=== PATIENT | female | born 2000 | race African-American/Black ===

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

== ENCOUNTER 2018-02-20 02:12 | Inpatient (IN) | payer OTHER ==
[2018-02-20] MEDS ORDERED: Charcoal ACTIVATED* 25 GM/120 ML BTL PO ONE ×2 (02:17→02:30)
[2018-02-20] MEDS ORDERED: NS 0.9% 1000 ML* 1,000 ML IV ONE (02:29)
[2018-02-20 02:35] LABS: ABS Basophils 0 10^3/ul (0-0.2); ABS Eosinophils 0.1 10^3/ul (0-0.6); ABS Lymphocytes 1.9 10^3/ul (1.0-4.8); ABS Monocytes 0.4 10^3/ul (0-0.8); ABS Neutrophils 3.5 10^3/ul (1.5-7.7); ABS Nucleated RBC 0 10^3/ul; Eosinophil % 2.2 %; Hematocrit 41 % (35-47); Hemoglobin 13.3 g/dl (12.0-16.0); Mean Corpuscular HGB Conc 33 g/dl (31-36); Mean Corpuscular Hemoglobin 26 pg (27-31); Mean Corpuscular Volume 81 fL (80-97); Mean Platelet Volume 7.7 fL (7.4-10.4); Nucleated Red Blood Cells % 0.1; Platelet Count 230 10^3/ul (150-450); Red Blood Count 5.05 10^6/ul (4.00-5.40); Red Cell Distribution Width 14 % (10.5-15); White Blood Count 5.9 10^3/ul (3.5-10.8)
--- NOTE | 2018-02-20 02:46 | ED ---
Substance Abuse/Use - HPI Summary HPI Summary: This patient is a 17 year old F BIBA to [facility] after she attempted to overdose on her prescription medication at 0130. Pt reports she took approximately 86 pills of 5mg abilify and approximately unknown amount of lexapro 20mg. She states she did have multiple episodes of emesis with pills in it. - History Of Current Complaint Stated Complaint: OD Time Seen by Provider: 02/20/18 02:14 Hx Obtained From: Patient Onset/Duration of Drug/ETOH Abuse: Hours Ingestion History: Type/Name Of Drug - see HPI, Amount Ingested - see HPI Overdose Characteristics: Oral Timing Of Abuse: Binge Use Severity Initially: Severe Severity Currently: Severe Character: Depressed Associated Signs And Symptoms: Vomiting, Intentional Ingestion Related Hx: Suicidal - Allergies/Home Medications Allergies/Adverse Reactions: Allergies Allergy/AdvReac Type Severity Reaction Status Date / Time No Known Allergies Allergy Verified 10/25/17 10:06 PMH/Surg Hx/FS Hx/Imm Hx Endocrine/Hematology History: Denies: Hx Diabetes Cardiovascular History: Denies: Hx Hypertension Sensory History: Reports: Hx Contacts or Glasses Denies: Hx Hearing Aid Opthamlomology History: Reports: Hx Contacts or Glasses Psychiatric History: Reports: Hx Anxiety, Hx Depression, Hx Inpatient Treatment , Hx Community Mental Health Tx Denies: Hx Attention Deficit Hyperactivity Disorder, Hx Eating Disorder, Hx Panic Disorder, Hx Post Traumatic Stress Disorder, Hx Schizophrenia, Hx Bipolar Disorder, Hx Suicide Attempt, Hx of Violent Episodes Against Others, Hx Substance Abuse - Surgical History Surgery Procedure, Year, and Place: tonsils and adenoids removed February 2017 Infectious Disease History: No Infectious Disease History: Denies: Traveled Outside the [place] in Last 30 Days - Family History Family History: Father with depression - Social History Alcohol Use: Rare Substance Use Type: Reports: Marijuana Substance Use Comment - Amount & Last Used: pt reports smoking marijuana 3-5 times per week Smoking Status (MU): Never Smoked Tobacco Review of Systems Negative: Fever Positive: Vomiting, Other - overdose Positive: Depressed, Other - SI All Other Systems Reviewed And Are Negative: Yes Physical Exam - Summary Physical Exam Summary: VITAL SIGNS: Reviewed. GENERAL: Patient is a well-developed and nourished female who is lying comfortable in the stretcher. Patient is not in any acute respiratory distress. HEAD AND FACE: No signs of trauma. No ecchymosis, hematomas or skull depressions. No sinus tenderness. EYES: PERRLA, EOMI x 2, No injected conjunctiva, no nystagmus. EARS: Hearing grossly intact. Ear canals and tympanic membranes are within normal limits. MOUTH: Oropharynx within normal limits. NECK: Supple, trachea is midline, no adenopathy, no JVD, no carotid bruit, no c- spine tenderness, neck with full ROM. CHEST: Symmetric, no tenderness at palpation LUNGS: Clear to auscultation bilaterally. No wheezing or crackles. CVS: Regular rate and rhythm, S1 and S2 present, no murmurs or gallops appreciated. ABDOMEN: Soft, non-tender. No signs of distention. No rebound no guarding, and no masses palpated. Bowel sounds are normal. EXTREMITIES: FROM in all major joints, no edema, no cyanosis or clubbing. NEURO: Alert and oriented x 3. No acute neurological deficits. Speech is slow SKIN: Dry and warm Triage Information Reviewed: Yes Vital Signs On Initial Exam: Initial Vitals Temp Pulse Resp BP Pulse Ox 97.6 F 86 15 123/75 97 02/20/18 02:21 02/20/18 02:21 02/20/18 02:21 02/20/18 02:21 02/20/18 02:21 Vital Signs Reviewed: Yes Diagnostics - Vital Signs Vital Signs Temp Pulse Resp BP Pulse Ox 02/20/18 02:21 97.6 F 86 15 123/75 97 - Laboratory Lab Results: Lab Results 02/20/18 Range/Units 02:26 WBC 5.9 (3.5-10.8) 10^3/ul RBC 5.05 (4.00-5.40) 10^6/ul Hgb 13.3 (12.0-16.0) g/dl Hct 41 (35-47) % MCV 81 (80-97) fL MCH 26 L (27-31) pg MCHC 33 (31-36) g/dl RDW 14 (10.5-15) % Plt Count 230 (150-450) 10^3/ul MPV 7.7 (7.4-10.4) fL Neut % (Auto) 58.3 % Lymph % (Auto) 32.0 % [place] % (Auto) 6.7 % Eos % (Auto) 2.2 % Baso % (Auto) 0.8 % Absolute Neuts (auto) 3.5 (1.5-7.7) 10^3/ul Absolute Lymphs (auto) 1.9 (1.0-4.8) 10^3/ul Absolute Monos (auto) 0.4 (0-0.8) 10^3/ul Absolute Eos (auto) 0.1 (0-0.6) 10^3/ul Absolute Basos (auto) 0 (0-0.2) 10^3/ul Absolute Nucleated RBC 0 10^3/ul Nucleated RBC % 0.1 Result Diagrams: 02/20/18 02:26 02/20/18 02:23 Lab Statement: Any lab studies that have been ordered have been reviewed, and results considered in the medical decision making process. - EKG 0239 Cardiac Rate: NL EKG Rhythm: Sinus Rhythm - at 83 BPM Summary of EKG Findings: Normal axis. Normal interval. No ischemic changes Re-Evaluation - Re-Evaluation First Eval Re-Evaluation Time: 03:00 Change: Unchanged Comment: poison control was contacted. They stated she will need 24 hour monitoring with tele. She can have benzos as needed. Course/Dx - Course Assessment/Plan: This patient is a 17 year old F BIBA to [facility] after she attempted to overdose on her prescription medication at 0130. Pt reports she took approximately 86 pills of 5mg abilify and approximately unknown amount of lexapro 20mg. She states she did have multiple episodes of emesis with pills in it. IV fluids and charcoal were given. We discussed patient care with the hospitalist and she was accepted for admission. Patient will be admitted. The patient is agreeable with this plan. - Diagnoses Provider Diagnoses: Depression, Overdose - Physician Notifications Discussed Care Of Patient With: Carter Ferris Time Discussed With Above Provider: 03:29 Instructed by Provider To: Admit As Inpatient Discharge - Sign-Out/Discharge Documenting (check all that apply): Patient Departure - admitted - Discharge Plan Condition: Fair Disposition: ADMITTED TO [facility] - Billing Disposition and Condition Condition: FAIR Disposition: Admitted to [facility] - Attestation Statements Document Initiated by Scribe: Yes Documenting Scribe: Bran Gonsalves Provider For Whom Scribe is Documenting (Include Credential): Sarah Wade MD Scribe Attestation: Bran Erazo scribed for Sarah Wade MD on 02/20/18 at 0602. Scribe Documentation Reviewed: Yes Provider Attestation: The documentation as recorded by the Bran chicas accurately reflects the service I personally performed and the decisions made by me, Sarah Wade MD Status of Scribkim Document: Viewed
[2018-02-20 02:51] LABS: ALT 13 U/L (7-52); AST 17 U/L (13-39); Albumin 4.2 g/dL (3.2-5.2); Albumin/Globulin Ratio 1.6 (1-3); Alkaline Phosphatase 72 U/L (34-104); Anion Gap 7 mmol/L (2-11); BUN/Creatinine Ratio 13.5 (8-20); Blood Urea Nitrogen 12 mg/dL (6-24); CO2 Carbon Dioxide 24 mmol/L (22-32); Calcium 9.4 mg/dL (8.6-10.3); Chloride 105 mmol/L (101-111); EGFR Non-African American 81.7 (>60); Globulin 2.7 g/dL (2-4); Glucose 116 mg/dL (70-100); Potassium 3.6 mmol/L (3.5-5.0); Sodium 136 mmol/L (135-145); Total Protein 6.9 g/dL (6.4-8.9)
[2018-02-20 02:57] LABS: HCG Pregnancy < 0.60 mIU/mL
[2018-02-20 03:08] LABS: Acetaminophen < 15 mcg/mL; Alcohol < 10 mg/dL (<10); Salicylate < 2.50 mg/dL (<30)
[2018-02-20 03:24] LABS: TSH (Thyroid Stimulating Horm) 1.11 mcIU/mL (0.34-5.60)
[2018-02-20 06:06] LABS: Urine Appearance Clear; Urine Bacteria Absent (Absent); Urine Bilirubin Negative (Negative); Urine Blood 1+ (Negative); Urine Color Colorless; Urine Glucose Negative (Negative); Urine Ketones Negative (Negative); Urine Nitrite Negative (Negative); Urine Protein Negative (Negative); Urine Red Blood Cell Trace(0-2/hpf) (Absent); Urine Specific Gravity 1.003 (1.010-1.030); Urine Urobilinogen Negative (Negative); Urine White Blood Cell Absent (Absent)
[2018-02-20 06:18] LABS: Barbiturates Urine Screen None Detected (None Detect); Benzodiazepine Urine Screen None Detected (None Detect); Urine Cannabinoids Screen Presumptive Positive (None Detect)
--- NOTE | 2018-02-20 06:19 | ADMNOTE ---
Subjective Date of Service: 02/20/18 Interval History: HISTORY & PHYSICAL CC: overdose HPI: Patient is a 17 year old student who took 86 pills of Abilify 5 mg and an unknown number of Lexapro tablets this evening. She was brought in by ambulance from [facility]. She is somnolent and cannot give much history. ER contacted poison control and was advised that she should be monitored on telemetry for 24 hours post ingestion. She was admitted to this hospital with depression and suicidal ideation 10/25 through 10/31/17. Was discharged to mental health services on Abilify and Lexapro. When asked who we should call to notify, she said she wants her mother to come up from [place] to see her. Family History: Findings - Mother and Father well, sister well Social History: Findings - Student at , single, no children, no smoking, no alcohol, no recreational drugs Past Medical History: Findings - denies PMH, had tonsils and adenoids removed in past Review of Systems - Measurements Intake and Output: Intake and Output Last 24 Hours 02/17/18 02/18/18 02/19/18 02/20/18 06:59 06:59 06:59 06:59 Intake Total 1000 Output Total 750 Balance 250 Weight 77.247 kg Intake: IV Fluids 1000 Oral 0 Output: Urine 750 - Review of Systems General Comments: patient lethargic, cannot respond to ROS Objective Additional Medications: received charcoal in ER Vital Signs - 8 hr 02/20/18 02/20/18 02/20/18 02:21 02:23 02:53 Temperature 36.4 C Pulse Rate 86 89 96 Respiratory 15 25 17 Rate Blood Pressure 123/75 123/75 126/91 (mmHg) O2 Sat by Pulse 97 96 97 Oximetry 02/20/18 02/20/18 02/20/18 03:00 03:23 03:53 Temperature Pulse Rate 78 74 77 Respiratory 18 18 18 Rate Blood Pressure 111/69 109/64 (mmHg) O2 Sat by Pulse 96 97 97 Oximetry 02/20/18 02/20/18 02/20/18 04:00 04:23 04:53 Temperature Pulse Rate 74 74 75 Respiratory 17 18 18 Rate Blood Pressure 111/61 106/62 (mmHg) O2 Sat by Pulse 96 97 96 Oximetry 02/20/18 02/20/18 05:06 05:51 Temperature 36.7 C 36.2 C Pulse Rate 73 79 Respiratory 15 20 Rate Blood Pressure 106/62 116/62 (mmHg) O2 Sat by Pulse 96 100 Oximetry Oxygen Devices in Use Now: None Appearance: sleeping, arouses to touch, drifts back to sleep Eyes: No Scleral Icterus Ears/Nose/Mouth/Throat: Clear Oropharnyx Neck: NL Appearance and Movements; NL JVP, Trachea Midline Respiratory: Symmetrical Chest Expansion and Respiratory Effort, Clear to Auscultation Cardiovascular: NL Sounds; No Murmurs; No JVD, RRR Abdominal: NL Sounds; No Tenderness; No Distention, No Hepatosplenomegaly Lymphatic: No Cervical Adenopathy, No Axillary Adenopathy Extremities: No Edema Skin: No Rash or Ulcers Neurological: NL Muscle Strength and Tone, - - somnolent, answers yes/no questions appropriately Lines/Tubes/Other Access: Clean, Dry and Intact Peripheral IV Nutrition: Taking PO's Result Diagrams: 02/20/18 02:26 02/20/18 02:23 Additional Lab and Data: Lab Results 02/20/18 Range/Units 02:26 WBC 5.9 (3.5-10.8) 10^3/ul RBC 5.05 (4.00-5.40) 10^6/ul Hgb 13.3 (12.0-16.0) g/dl Hct 41 (35-47) % MCV 81 (80-97) fL MCH 26 L (27-31) pg MCHC 33 (31-36) g/dl RDW 14 (10.5-15) % Plt Count 230 (150-450) 10^3/ul MPV 7.7 (7.4-10.4) fL Neut % (Auto) 58.3 % Lymph % (Auto) 32.0 % [place] % (Auto) 6.7 % Eos % (Auto) 2.2 % Baso % (Auto) 0.8 % Absolute Neuts (auto) 3.5 (1.5-7.7) 10^3/ul Absolute Lymphs (auto) 1.9 (1.0-4.8) 10^3/ul Absolute Monos (auto) 0.4 (0-0.8) 10^3/ul Absolute Eos (auto) 0.1 (0-0.6) 10^3/ul Absolute Basos (auto) 0 (0-0.2) 10^3/ul Absolute Nucleated RBC 0 10^3/ul Nucleated RBC % 0.1 Microbiology and Other Data: Laboratory Tests 02/20/18 02/20/18 02/20/18 02:23 05:34 05:34 Calcium 9.4 AST 17 ALT 13 TSH 1.11 Beta HCG, Quant < 0.60 Ur Specific [place] 1.003 L Urine Blood 1+ A Salicylates < 2.50 Urine Opiates Screen None detected Acetaminophen < 15 Ur Barbiturates Screen None detected Ur Phencyclidine Scrn None detected Ur Amphetamines Screen None detected U Benzodiazepines Scrn None detected Urine Cocaine Screen None detected U Cannabinoids Screen Presumptive positive A Serum Alcohol < 10 EKG Data: normal sinus rhythm, normal axis, no ischemia Assess/Plan/Problems-Billing Assessment: 17 year old woman with significant suicide attempt, overdose on Abilify and Lexapro - Patient Problems (1) Overdose of antipsychotic Current Visit: Yes Status: Acute Priority: High Code(s): T43.501A - POISONING BY UNSP ANTIPSYCHOT/NEUROLEPT, ACCIDENTAL, INIT SNOMED Code(s): 49576856 Comment: There is some risk of seizures and cardiac arrythmias, will monitor on telemetry for 24 hours. Initial labs and EKG reassuring. (2) Major depressive disorder Current Visit: No Status: Acute Priority: High Code(s): F32.9 - MAJOR DEPRESSIVE DISORDER, SINGLE EPISODE, UNSPECIFIED SNOMED Code(s): 783994005 Comment: Will need psychiatry consultation later in day when she is more alert. Will continue 1:1 monitoring while on medical floor. Can obtain collateral information from mother when she arrives. ER notified her , she is on her way. (3) DVT prophylaxis Current Visit: Yes Status: Acute Priority: Low Code(s): PNP5225 - SNOMED Code(s): 407223305 Comment: low risk, will encourage early ambulation Status and Disposition: requires inpatient stay for medical monitoring, and then psychiatric care.
--- NOTE | 2018-02-20 19:37 | PN ---
Subjective Interval History: Pt seen and examined. 17 yo female PMH anxiety, depression who presents with intentional overdose of abilify and lexapro. Plan per Poison control is telemonitor for 24 hours. Hemodynamically stable. Stable QTc on repeat EKG when briefly tachycardic. Plan for discharge to [facility] in AM. Family History: Findings - Mother and Father well, sister well Social History: Findings - Student at , single, no children, no smoking, no alcohol, no recreational drugs Past Medical History: Findings - denies PMH, had tonsils and adenoids removed in past Objective Additional Medications: received charcoal in ER Vital Signs - 8 hr 02/20/18 02/20/18 12:08 16:17 Temperature 97.9 F 97.8 F Pulse Rate 64 64 Respiratory 16 18 Rate Blood Pressure 95/55 105/49 (mmHg) O2 Sat by Pulse 99 98 Oximetry Oxygen Devices in Use Now: None Result Diagrams: 02/20/18 02:26 02/20/18 02:23 Additional Lab and Data: Lab Results 02/20/18 Range/Units 02:26 WBC 5.9 (3.5-10.8) 10^3/ul RBC 5.05 (4.00-5.40) 10^6/ul Hgb 13.3 (12.0-16.0) g/dl Hct 41 (35-47) % MCV 81 (80-97) fL MCH 26 L (27-31) pg MCHC 33 (31-36) g/dl RDW 14 (10.5-15) % Plt Count 230 (150-450) 10^3/ul MPV 7.7 (7.4-10.4) fL Neut % (Auto) 58.3 % Lymph % (Auto) 32.0 % [place] % (Auto) 6.7 % Eos % (Auto) 2.2 % Baso % (Auto) 0.8 % Absolute Neuts (auto) 3.5 (1.5-7.7) 10^3/ul Absolute Lymphs (auto) 1.9 (1.0-4.8) 10^3/ul Absolute Monos (auto) 0.4 (0-0.8) 10^3/ul Absolute Eos (auto) 0.1 (0-0.6) 10^3/ul Absolute Basos (auto) 0 (0-0.2) 10^3/ul Absolute Nucleated RBC 0 10^3/ul Nucleated RBC % 0.1 Microbiology and Other Data: Laboratory Tests 02/20/18 02/20/18 02/20/18 02:23 05:34 05:34 Calcium 9.4 AST 17 ALT 13 TSH 1.11 Beta HCG, Quant < 0.60 Ur Specific [place] 1.003 L Urine Blood 1+ A Salicylates < 2.50 Urine Opiates Screen None detected Acetaminophen < 15 Ur Barbiturates Screen None detected Ur Phencyclidine Scrn None detected Ur Amphetamines Screen None detected U Benzodiazepines Scrn None detected Urine Cocaine Screen None detected U Cannabinoids Screen Presumptive positive A Serum Alcohol < 10 EKG Data: normal sinus rhythm, normal axis, no ischemia Assess/Plan/Problems-Billing Assessment: 17 year old woman with significant suicide attempt, overdose on Abilify and Lexapro Status and Disposition: requires inpatient stay for medical monitoring, and then psychiatric care.
--- NOTE | 2018-02-20 21:04 | CONS ---
CC: Dr. Johnson; Dr. Carter Ferris * CONSULTATION REPORT/HISTORY AND PHYSICAL TO BSU: DATE OF CONSULT: 02/20/18 PROVIDER: Darby Villagomez NP, in Psychiatry. SUPERVISING PHYSICIAN: Dr. Homar Arrieta. PHYSICIAN REQUESTING THE CONSULT: Dr. Carter Ferris. JUSTIFICATION FOR CONSULT: The patient is status post serious overdose of 80 plus Abilify 5 mg tablets and 20 Lexapro 20 mg tablets. CHIEF COMPLAINT: "Lately I have been feeling irritable about the children, her daughter heard me crying, then just said she does not know how she will cope with my breakdowns." HISTORY OF PRESENT ILLNESS: The patient is a 17-year-old partnered black female with a history of 1 admission here at [facility] and 1 prior admission to that, who was brought by ambulance from [facility]. She was somnolent, could not give a lot of history at that time. Poison Control was contacted and the hospital was advised that she should be on telemetry for 24 hours. Ria has been living with a woman named Dhara since November where she was just a friend of hers and she was offered a job at the [employer] and Dhara offered her a place to stay. Since then, Rafa and Ria have become romantically involved and Ria has been helping with Dhara' children, but Ria lately has been irritable and not been offering enough affection and indeed she is crying and Dhara's daughter, Rene heard her, so Dhara indicated she did not know how she would cope with Ria's emotional dysregulation. Ria states she is feeling negative like she is a burden, that she is stuck, and that she is helpless. Her sleep is poor. She is not interested in anything and in fact dropped out of college. She feels guilt about this action and about how she is making her parents feel. Her energy is low, she cannot concentrate and she has suicidal ideation. PAST PSYCHIATRIC HISTORY: She has 2 previous psychiatric admissions, one 4 years ago and one in October here at [facility]. She is in treatment at [facility], but was only able to be seen every 2 to 3 weeks, which she stated was not enough. She has a new therapist on the , whose name is Mc, but she cannot remember his last name. She also sees Dr. Hirsch in [place]. She states she has chronic suicidal thoughts. She denies trauma in her past or traumatic brain injury. MEDICATIONS: Her psych meds include: 1. Abilify 5. 2. Lexapro 40. Currently, these will be changed. SUBSTANCE ABUSE HISTORY: She denies all substance use including nicotine, alcohol and other illicit substances with the exception of cannabis. She states she is trying to cut back. PAST MEDICAL HISTORY: She had her tonsils and adenoids removed. She sees her primary care doctor on [place], Dr. Ashley. She states in general she is well and healthy. ALLERGIES: No known drug allergies. FAMILY HISTORY: On mom's side, she denies any history of psychiatric problems. On dad's side, she believes that dad and the uncle were both depressed and did their best to work through it and are still working through it at this point. SOCIAL HISTORY: Her family is from [place], now they all live on [place]. Mom and dad are still together. Ria reports that she was "daddy's girl" until she was 14 at which point she more clearly struggled with mental illness, although she reports that she probably started initially in 5th grade. She denies abuse. She has a girlfriend who she broke up with in October and has another girlfriend now, named Dhara. She is in [employer], but she has taken an academic leave for the fall and spring semesters. She had a [employer] scholarship of some kind. She used to take 18 credits per semester. She is employed at the [employer]. She is not in the . She has no legal problems. REVIEW OF SYSTEMS: The patient reports feeling fatigued. She denies shortness of breath, heat or cold intolerance, chest pain, or abdominal pain. She denies neurological symptoms. She denies fevers or changes in weight. PHYSICAL EXAM: I will defer the physical examination to the medical floor. MENTAL STATUS EXAMINATION: This is a short, densely built young woman with dark brown skin, who has dreadlocks. She is found drowsy in her bed, room 449 on the 4th floor. She is sad. She does not feel well. She does have a full range of affect. Her thought processes are normal and the content is normal. She is not homicidal. She continues to think of suicide. She is not having auditory or visual hallucinations, although she experiences odd beliefs about Santeria, tarot, healing crystals, spirituality, seeing the importance of the numbers 1, 2 and 3 and further things like that. Her insight is fair. Her judgment is fair. She is alert and oriented x3. DIAGNOSES: [place] I: Major depressive disorder, generalized anxiety disorder, rule out bipolar disorder. [place] II: Rule out personality disorder. IMPRESSION: This is a 17-year-old woman who is clearly intellectually bright and personable, who is here in the context of wanting to end her own life by overdosing. PLAN: The patient is admitted to adult behavioral health unit on Tuesday, 02/21 , and is placed on q.15 minute checks for her own safety. She is encouraged to participate in supportive milieu, individual and group therapies. Estimated length of stay is just 7 days. Discharge planning will include family involvement and outpatient providers. RECOMMENDATIONS: Include 0.5 Klonopin at bedtime. Admit tomorrow 9.39 status at 7 a.m. Regular diet and no one-to-one being required while she is on the medical floor. DARBY VILLAGOMEZ, JULIANO [id number]/[facility] #: [id number] CARMEN
--- NOTE | 2018-02-21 07:28 | PN ---
Subjective Date of Service: 02/21/18 Interval History: Pt does not speak much, answers questions with uh-huh or no. She does states she feels sleepy. Objective Additional Medications: received charcoal in ER Vital Signs - 8 hr 02/20/18 02/21/18 23:32 03:43 Temperature 98.4 F 97.0 F Pulse Rate 79 77 Respiratory 20 20 Rate Blood Pressure 116/57 108/63 (mmHg) O2 Sat by Pulse 98 100 Oximetry Oxygen Devices in Use Now: None Appearance: Young female lying in bed, awakens to voice, NAD Eyes: No Scleral Icterus Ears/Nose/Mouth/Throat: Mucous Membranes Moist Respiratory: Symmetrical Chest Expansion and Respiratory Effort, Clear to Auscultation Cardiovascular: NL Sounds; No Murmurs; No JVD, RRR, No Edema Abdominal: NL Sounds; No Tenderness; No Distention Extremities: No Clubbing, Cyanosis Skin: No Nodules or Sclerosis Neurological: - - poorly engaged at this time Result Diagrams: 02/20/18 02:26 02/20/18 02:23 Additional Lab and Data: Lab Results 02/20/18 Range/Units 02:26 WBC 5.9 (3.5-10.8) 10^3/ul RBC 5.05 (4.00-5.40) 10^6/ul Hgb 13.3 (12.0-16.0) g/dl Hct 41 (35-47) % MCV 81 (80-97) fL MCH 26 L (27-31) pg MCHC 33 (31-36) g/dl RDW 14 (10.5-15) % Plt Count 230 (150-450) 10^3/ul MPV 7.7 (7.4-10.4) fL Neut % (Auto) 58.3 % Lymph % (Auto) 32.0 % [place] % (Auto) 6.7 % Eos % (Auto) 2.2 % Baso % (Auto) 0.8 % Absolute Neuts (auto) 3.5 (1.5-7.7) 10^3/ul Absolute Lymphs (auto) 1.9 (1.0-4.8) 10^3/ul Absolute Monos (auto) 0.4 (0-0.8) 10^3/ul Absolute Eos (auto) 0.1 (0-0.6) 10^3/ul Absolute Basos (auto) 0 (0-0.2) 10^3/ul Absolute Nucleated RBC 0 10^3/ul Nucleated RBC % 0.1 Microbiology and Other Data: Laboratory Tests 02/20/18 02/20/18 02/20/18 02:23 05:34 05:34 Calcium 9.4 AST 17 ALT 13 TSH 1.11 Beta HCG, Quant < 0.60 Ur Specific [place] 1.003 L Urine Blood 1+ A Salicylates < 2.50 Urine Opiates Screen None detected Acetaminophen < 15 Ur Barbiturates Screen None detected Ur Phencyclidine Scrn None detected Ur Amphetamines Screen None detected U Benzodiazepines Scrn None detected Urine Cocaine Screen None detected U Cannabinoids Screen Presumptive positive A Serum Alcohol < 10 EKG Data: normal sinus rhythm, normal axis, no ischemia Assess/Plan/Problems-Billing Miss Amador is a 17 year old F who presented to the ER after a suicide attempt by overdosing on Abilify and Lexapro. - Patient Problems (1) Overdose of antipsychotic Current Visit: Yes Status: Acute Priority: High Code(s): T43.501A - POISONING BY UNSP ANTIPSYCHOT/NEUROLEPT, ACCIDENTAL, INIT SNOMED Code(s): 98011383 Comment: No seizures or cardiac arrythmias. She is ready for transfer to MHU this AM. (2) Major depressive disorder Current Visit: Yes Status: Acute Priority: High Code(s): F32.9 - MAJOR DEPRESSIVE DISORDER, SINGLE EPISODE, UNSPECIFIED SNOMED Code(s): 603762128 Comment: Plan for transfer to MHU today. (3) DVT prophylaxis Current Visit: Yes Status: Acute Priority: Low Code(s): SIH8901 - SNOMED Code(s): 010997960 Comment: ambulation (4) Full code status Current Visit: Yes Status: Acute Code(s): Z78.9 - OTHER SPECIFIED HEALTH STATUS SNOMED Code(s): 110470652 Status and Disposition: .
[2018-02-21 07:42] LABS: HDL Cholesterol 40.4 mg/dL
[2018-02-21 08:23] VITALS: BP 109/60
--- NOTE | 2018-02-21 14:51 | DS ---
DISCHARGE SUMMARY: DATE OF ADMISSION: 02/20/18 DATE OF DISCHARGE: 02/21/18 PRIMARY CARE PROVIDER: None. PRINCIPAL DIAGNOSES: 1. Suicide attempt by overdose of Abilify and Lexapro. 2. Depression. DISCHARGE MEDICATIONS: None. HOSPITAL COURSE: Ms. Amador is a 17-year-old female who carries a history of depression and presented to the emergency room on 02/20/18 with complaints of overdose on Abilify and Lexapro. The patient was admitted for medical stabilization. She is now felt to be medically clear from her overdose. She had no untoward side effects such as seizure or cardiac arrhythmias from the overdose. The patient's vital signs are stable. At this point, she is stable for discharge to the mental health unit where she has been accepted. FOLLOWUP CONCERNS: The patient is being discharged to the mental health unit today, 02/21/18. ACTIVITY LEVEL: As tolerated. DIET: Regular. CONDITION ON DISCHARGE: Stable. TIME SPENT: Twenty minutes was spent discharging this patient. [id number]/[facility] #: [id number] CARMEN
== END 2018-02-21 10:29 | DRG 812 ==
LOC: ED 02:12 → MEDTELE 04:53
PROVIDERS: ADMIT Internal Medicine; ATTEND Hospitalist
DX: T43.592A Poisoning by other antipsychotics and neuroleptics, intentional self-harm, initial encounter (principal); T43.222A Poisoning by selective serotonin reuptake inhibitors, intentional self-harm, initial encounter; F41.9 Anxiety disorder, unspecified; F32.9 Major depressive disorder, single episode, unspecified; R00.0 Tachycardia, unspecified; Y92.009 Unspecified place in unspecified non-institutional (private) residence as the place of occurrence of the external cause; Z81.8 Family history of other mental and behavioral disorders
CPT/HCPCS: 36415; 80053; 80061; 80307; 80320; 80329; 81003; 81015; 83036; 84443; 84702; 85025; 93005; 99284; A9270-GY; G0480

== ENCOUNTER 2018-02-21 07:28 | Inpatient (IN) | payer OTHER ==
--- NOTE | 2018-02-21 14:24 | HP ---
HISTORY AND PHYSICAL/CONSULTATION REPORT DATE OF CONSULT: 02/20/18 PROVIDER: Darby Villagomez NP, in Psychiatry. SUPERVISING PHYSICIAN: Dr. Homar Arrieta* (dictated by Darby Villagomez NP). PHYSICIAN REQUESTING THE CONSULT: Dr. Carter Ferris. JUSTIFICATION FOR CONSULT: The patient is status post serious overdose of 80 plus Abilify 5 mg tablets and 20 Lexapro 20 mg tablets. CHIEF COMPLAINT: "Lately I have been feeling irritable about the children, her daughter heard me crying, then just said she does not know how she will cope with my breakdowns." HISTORY OF PRESENT ILLNESS: The patient is a 17-year-old partnered black female with a history of 1 admission here at [facility] and 1 prior admission to that, who was brought by ambulance from [facility]. She was somnolent, could not give a lot of history at that time. Poison Control was contacted and the hospital was advised that she should be on telemetry for 24 hours. Ria has been living with a woman named Dhara since November where she was just a friend of hers and she was offered a job at the [employer] and Dhara offered her a place to stay. Since then, Rafa and Ria have become romantically involved and Ria has been helping with Dhara' children, but Ria lately has been irritable and not been offering enough affection and indeed she is crying and Dhara's daughter, Rene heard her, so Dhara indicated she did not know how she would cope with Ria's emotional dysregulation. Ria states she is feeling negative like she is a burden, that she is stuck, and that she is helpless. Her sleep is poor. She is not interested in anything and in fact dropped out of college. She feels guilt about this action and about how she is making her parents feel. Her energy is low, she cannot concentrate and she has suicidal ideation. PAST PSYCHIATRIC HISTORY: She has 2 previous psychiatric admissions, one 4 years ago and one in October here at [facility]. She is in treatment at [facility], but was only able to be seen every 2 to 3 weeks, which she stated was not enough. She has a new therapist on the , whose name is Mc, but she cannot remember his last name. She also sees Dr. Hirsch in [place]. She states she has chronic suicidal thoughts. She denies trauma in her past or traumatic brain injury. MEDICATIONS: Her psych meds include: 1. Abilify 5. 2. Lexapro 40. Currently, these will be changed. SUBSTANCE ABUSE HISTORY: She denies all substance use including nicotine, alcohol and other illicit substances with the exception of cannabis. She states she is trying to cut back. PAST MEDICAL HISTORY: She had her tonsils and adenoids removed. She sees her primary care doctor on [place], Dr. Ashley. She states in general she is well and healthy. ALLERGIES: No known drug allergies. FAMILY HISTORY: On mom's side, she denies any history of psychiatric problems. On dad's side, she believes that dad and the uncle were both depressed and did their best to work through it and are still working through it at this point. SOCIAL HISTORY: Her family is from [place], now they all live on [place]. Mom and dad are still together. Ria reports that she was "daddy's girl" until she was 14 at which point she more clearly struggled with mental illness, although she reports that she probably started initially in 5th grade. She denies abuse. She has a girlfriend who she broke up with in October and has another girlfriend now, named Dhara. She is in [employer], but she has taken an academic leave for the fall and spring semesters. She had a [employer] scholarship of some kind. She used to take 18 credits per semester. She is employed at the [employer]. She is not in the . She has no legal problems. REVIEW OF SYSTEMS: The patient reports feeling fatigued. She denies shortness of breath, heat or cold intolerance, chest pain, or abdominal pain. She denies neurological symptoms. She denies fevers or changes in weight. PHYSICAL EXAM: I will defer the physical examination to the medical floor. MENTAL STATUS EXAMINATION: This is a short, densely built young woman with dark brown skin, who has dreadlocks. She is found drowsy in her bed, room 449 on the 4th floor. She is sad. She does not feel well. She does have a full range of affect. Her thought processes are normal and the content is normal. She is not homicidal. She continues to think of suicide. She is not having auditory or visual hallucinations, although she experiences odd beliefs about Santeria, tarot, healing crystals, spirituality, seeing the importance of the numbers 1, 2 and 3 and further things like that. Her insight is fair. Her judgment is fair. She is alert and oriented x3. DIAGNOSES: Orange I: Major depressive disorder, generalized anxiety disorder, rule out bipolar disorder. Orange II: Rule out personality disorder. IMPRESSION: This is a 17-year-old woman who is clearly intellectually bright and personable, who is here in the context of wanting to end her own life by overdosing. PLAN: The patient is admitted to adult behavioral health unit on Tuesday, 02/21 , and is placed on q.15 minute checks for her own safety. She is encouraged to participate in supportive milieu, individual and group therapies. Estimated length of stay is just 7 days. Discharge planning will include family involvement and outpatient providers. RECOMMENDATIONS: Include 0.5 Klonopin at bedtime. Admit tomorrow 9.39 status at 7 a.m. Regular diet and no one-to-one being required while she is on the medical floor. DARBY VILLAGOMEZ NP [id number]/CPS #: [id number] CARMEN
--- NOTE | 2018-02-21 15:21 | PN ---
Subjective - Subjective Date of Service: 02/21/18 Service Type: 55070 Hosp care 15 min low complexity Subjective: Ria seems confused by how she "got here again" and now that she's on an involuntary status, she's more distressed. She appears young and a little needy , but is pleasant. She is agreeable to restarting medication. Objective - Appearance Appearance: Well Developed/Nourished Dysmorphic Features: No Hygiene: Normal Grooming: Well Kept - Behavior Psychomotor Activities: Normal Exhibits Abnormal Movement: No - Attitude and Relatedness Attitude and Relatedness: Well Related Eye Contact: Good - Speech Quality: Unpressured Latencies: Normal Quantity: Appropriate - Mood Patient's Decription of Mood: "Okay" - Affect Observed Affect: Fair Affect Consistent with: Dysphoria - Thought Process Patient's Thought Process: Coherent, Goal Directed Thought Content: No Passive Wish, No Suicidal Planning, No Homicidal Ideation, No Paranoid Ideation - Sensorium Experiencing Hallucinations: No, Sensorium is Clear Type of Hallucinations: Visual: Yes - Level of Consciousness Level of Consciousness: Alert Orientation: Yes Intact, Yes Orientated to Time, Yes Orientated to Place, Yes Orientated to Person - Impulse Control Impulse Control: Tenuous - Insight and Judgement Insight and Judgement: Fair - Group Participation Particating in Group Activities: Yes - Medication Management Medication Management Adherence: Yes Assessment - Assessment Merits Inpatient Hospitalization: For Immediate Safety, For Stabilization, For Discharge Planning Inpatient DSM-V Dx: F33.1 Clinical Impression: Ria is a 17-year-old single black woman who came to the hospital by ambulance after taking 89 tablets of Abilify 5 mg and 20+ tablets of Lexapro 20. She was kept on the fourth floor telemetry until she could be transferred here to the [facility]. Plan - Plan Treatment Plan: Name: RIA LANGSTON Birthdate: 2000 [id number] Continued Medication Management: Different Medication - Discharge Plan Discharge Plan: Outpatient Follow Up Additional Comments: Ria found that Abilify was helpful but that Lexapro was less helpful. She reports she wants to try Abilify again but will take Effexor rather than Lexapro.
[2018-02-21] MEDS: ARIPiprazole TAB* 2 MG PO SCH (21:56)
[2018-02-22 08:16] LABS: HDL Cholesterol 38.6 mg/dL
[2018-02-22] MEDS: Venlafaxine EXT RELEASE CAP* 75 MG PO SCH (08:50)
--- NOTE | 2018-02-22 15:45 | PN ---
Subjective - Subjective Date of Service: 02/22/18 Service Type: 38567 Hosp care 35 min high complexity Subjective: Ria, her mom Suad, and her sister, Jean Claude, came for a family meeting. Following the meeting and the departure of Jean Claude and Ria, a phone conference was had among Suad, Sudhakar (Ria's dad), Joe Loera, STAFF MIDWIFE/APPRENTICESHIP DIRECTOR, was had. Ria states she is well and happy. She asserts that she has been feeling and doing well "for so long!" When it is pointed out that she made a nearly lethal attempt to end her life and that she will not be leaving until Tuesday, she begins crying loudly, pulling on her hair, and sobbing. She is nearly inconsolable and eventually leaves the room when the conversation seems to have reached an end point. The conversation with Sudhakar, Suad, Joe, and was strained as Sudhakar seemed to have an agenda including Ria coming forward with information he stated he had that she didn't know he had. Ria was unenthusiastic about speaking with Joe or with me the rest of the day. The MMPI was ordered. Objective - Appearance Appearance: Well Developed/Nourished Dysmorphic Features: No Hygiene: Normal Grooming: Fairly Well Kept - Behavior Psychomotor Activities: Normal Exhibits Abnormal Movement: No - Attitude and Relatedness Attitude and Relatedness: Regressed Eye Contact: Fair - Speech Quality: Pressured Latencies: Normal Quantity: Copious - Mood Patient's Decription of Mood: "Terrible" - Affect Observed Affect: Labile Affect Consistent with: Dysphoria - Thought Process Patient's Thought Process: Loose Associations, Circumstantial, Over Inclusive Thought Content: No Passive Wish, No Suicidal Planning, No Homicidal Ideation, No Paranoid Ideation - Sensorium Experiencing Hallucinations: No, Sensorium is Clear Type of Hallucinations: Visual: No, Auditory: No, Command: No - Level of Consciousness Level of Consciousness: Agitated Orientation: Yes Intact, Yes Orientated to Time, Yes Orientated to Place, Yes Orientated to Person - Impulse Control Impulse Control: Impaired - Insight and Judgement Insight and Judgement: Poor - Group Participation Particating in Group Activities: No - Medication Management Medication Management Adherence: Yes Assessment - Assessment Inpatient DSM-V Dx: F33.1 Clinical Impression: Ria is a 17-year-old single black woman who came to the hospital by ambulance after taking 89 tablets of Abilify 5 mg and 20+ tablets of Lexapro 20. She was kept on the fourth floor telemetry until she could be transferred here to the [facility]. Plan - Plan Treatment Plan: Name: RIA LANGSTON Birthdate: 2000 [id number] Medications: Current Medications Aripiprazole (Abilify Tab*) 2 mg PO BEDTIME [facility] Last Admin: 02/21/18 21:56 Dose: Not Given Venlafaxine HCl (Effexor Xr Cap*) 75 mg PO DAILY [facility] Last Admin: 02/22/18 08:50 Dose: 75 mg - Discharge Plan Discharge Plan: Outpatient Follow Up Outpatient Program: [facility] Additional Comments: Ria found that Abilify was helpful but that Lexapro was less helpful. She reports she wants to try Abilify again but will take Effexor rather than Lexapro. Today's plan includes Ria completing the MMPI and going to groups and taking medication. She was also assigned to make an art project of a crisis plan.
[2018-02-22] MEDS: ARIPiprazole TAB* 2 MG PO SCH (20:13)
[2018-02-23] MEDS: Venlafaxine EXT RELEASE CAP* 75 MG PO SCH (10:31)
--- NOTE | 2018-02-23 20:09 | PN ---
Subjective - Subjective Date of Service: 02/23/18 Service Type: 86511 Hosp care 15 min low complexity Subjective: Ria generally avoided speaking to me today. She did say that she didn't think groups would help her and that she needed to heal in her own way, which involves journaling and sleeping with her head hidden under the covers. Assessment - Assessment Inpatient DSM-V Dx: F33.1 Clinical Impression: Ria is a 17-year-old single black woman who came to the hospital by ambulance after taking 89 tablets of Abilify 5 mg and 20+ tablets of Lexapro 20. She was kept on the fourth floor telemetry until she could be transferred here to the [facility]. Plan - Plan Treatment Plan: Name: RIA LANGSTON Birthdate: 2000 [id number] Medications: Current Medications Aripiprazole (Abilify Tab*) 2 mg PO BEDTIME [facility] Last Admin: 02/22/18 20:13 Dose: 2 mg Venlafaxine HCl (Effexor Xr Cap*) 75 mg PO DAILY [facility] Last Admin: 02/23/18 10:31 Dose: 75 mg - Discharge Plan Additional Comments: Ria found that Abilify was helpful but that Lexapro was less helpful. She reports she wants to try Abilify again but will take Effexor rather than Lexapro. Today's plan includes Ria completing the MMPI and going to groups and taking medication. She was also assigned to make an art project of a crisis plan.
[2018-02-23] MEDS: ARIPiprazole TAB* 2 MG PO SCH (21:23)
[2018-02-24] MEDS: Venlafaxine EXT RELEASE CAP* 75 MG PO SCH (10:19)
--- NOTE | 2018-02-24 11:20 | PN ---
[facility]: Group Therapy Note - Service Type Service Type: [id number] Group Psychotherapy - Cognitive Behavioral Group Therapy ( CBT):Patient was attentive and participatory in CBT programming this morning, and remained in good behavioral control. Patient expressed positive insights regarding relevant treatment interventions and goals.
--- NOTE | 2018-02-24 22:05 | PN ---
Subjective - Subjective Date of Service: 02/24/18 Service Type: 01030 Hosp care 15 min low complexity Subjective: Ria is cooperating with her own plan of "healing," despite repeated encouragement to participate. She has therefore agreed to rest and to journal. It would be to her benefit to participate, but she is willing to follow up this time. Objective - Appearance Appearance: Well Developed/Nourished Dysmorphic Features: No Hygiene: Normal Grooming: Well Kept - Behavior Psychomotor Activities: Normal Exhibits Abnormal Movement: No - Attitude and Relatedness Attitude and Relatedness: Superficially Cooperative Eye Contact: Fair - Speech Quality: Unpressured Latencies: Normal Quantity: Terse - Mood Patient's Decription of Mood: "Fine" - Affect Observed Affect: Constricted Affect Consistent with: Dysphoria - Thought Process Patient's Thought Process: Coherent Thought Content: No Passive Wish, No Suicidal Planning, No Homicidal Ideation, No Paranoid Ideation - Sensorium Experiencing Hallucinations: No, Sensorium is Clear Type of Hallucinations: Visual: No, Auditory: No, Command: No - Level of Consciousness Level of Consciousness: Alert Orientation: Yes Intact, Yes Orientated to Time, Yes Orientated to Place, Yes Orientated to Person - Impulse Control Impulse Control: Tenuous - Insight and Judgement Insight and Judgement: Poor - Group Participation Particating in Group Activities: No - Medication Management Medication Management Adherence: Yes Assessment - Assessment Inpatient DSM-V Dx: F33.1 Clinical Impression: Ria is a 17-year-old single black woman who came to the hospital by ambulance after taking 89 tablets of Abilify 5 mg and 20+ tablets of Lexapro 20. She was kept on the fourth floor telemetry until she could be transferred here to the [facility]. Plan - Plan Treatment Plan: Name: RIA LANGSTON Birthdate: 2000 [id number] Medications: Current Medications Aripiprazole (Abilify Tab*) 2 mg PO BEDTIME [facility] Last Admin: 02/23/18 21:23 Dose: 2 mg Venlafaxine HCl (Effexor Xr Cap*) 75 mg PO DAILY [facility] Last Admin: 02/24/18 10:19 Dose: 75 mg - Discharge Plan Discharge Plan: Outpatient Follow Up Outpatient Program: Private Clinician(s) Additional Comments: Ria found that Abilify was helpful but that Lexapro was less helpful. She reports she wants to try Abilify again but will take Effexor rather than Lexapro. Today's plan includes Ria completing the MMPI and going to groups and taking medication. She was also assigned to make an art project of a crisis plan. 02/24/18: Ria is superficially cooperative and will benefit from outpatient therapy and medication management. Her stay this weekend is a hopeful attempt to improve insight into the severity of her suicide attempt.
[2018-02-24] MEDS: ARIPiprazole TAB* 2 MG PO SCH (22:10)
[2018-02-25] MEDS: Venlafaxine EXT RELEASE CAP* 75 MG PO SCH (08:33)
--- NOTE | 2018-02-25 14:34 | PN ---
Subjective - Subjective Date of Service: 02/25/18 Service Type: 21706 Hosp care 15 min low complexity Subjective: Ria is seen in weekend coverage for NPP, Darby Villagomez. She is accompanied in her room by her female partner. Ria is in good spirits and denies any thoughts of harming herself or ending her life. She is feeling ready for discharge and anticipates doing so on Tuesday (02/27). She denies untoward effects of medication. Objective - Appearance Appearance: Well Developed/Nourished Dysmorphic Features: No Hygiene: Normal Grooming: Well Kept - Behavior Psychomotor Activities: Normal Exhibits Abnormal Movement: No - Attitude and Relatedness Attitude and Relatedness: Cooperative Eye Contact: Good - Speech Quality: Unpressured Latencies: Normal Quantity: Appropriate - Mood Patient's Decription of Mood: "Good" - Affect Observed Affect: Good Affect Consistent with: Euthymia - Thought Process Patient's Thought Process: Coherent Thought Content: No Passive Wish, No Suicidal Planning, No Homicidal Ideation, No Paranoid Ideation - Sensorium Experiencing Hallucinations: Yes Type of Hallucinations: Visual: No, Auditory: No, Command: No - Level of Consciousness Level of Consciousness: Alert Orientation: Yes Intact, Yes Orientated to Time, Yes Orientated to Place, Yes Orientated to Person - Impulse Control Impulse Control: Tenuous - Insight and Judgement Insight and Judgement: Fair - Group Participation Particating in Group Activities: No - Medication Management Medication Management Adherence: Yes Assessment - Assessment Merits Inpatient Hospitalization: Consolidate Improvements, Pending Safe DC Plan Inpatient DSM-V Dx: F33.1 Clinical Impression: Ria is a 17-year-old single black woman who came to the hospital by ambulance after taking 89 tablets of Abilify 5 mg and 20+ tablets of Lexapro 20. She was kept on the fourth floor telemetry until she could be transferred here to the [facility]. Plan - Plan Treatment Plan: Name: RIA LANGSTON Birthdate: 2000 [id number] Continue venlafaxine XR 75mg PO qam and aripiprazole 2mg PO qday. Target discharge Tuesday, February 27 with local outpatient f/u. Continued Medication Management: Continue Outpt Medication Medications: Current Medications Aripiprazole (Abilify Tab*) 2 mg PO BEDTIME [facility] Last Admin: 02/24/18 22:10 Dose: 2 mg Venlafaxine HCl (Effexor Xr Cap*) 75 mg PO DAILY [facility] Last Admin: 02/25/18 08:33 Dose: 75 mg - Discharge Plan Discharge Plan: Outpatient Follow Up
[2018-02-25] MEDS: ARIPiprazole TAB* 2 MG PO SCH (21:56)
[2018-02-26] MEDS: Venlafaxine EXT RELEASE CAP* 75 MG PO SCH (08:39)
[2018-02-26] MEDS: ARIPiprazole TAB* 2 MG PO SCH (20:49)
[2018-02-27 08:31] VITALS: BP 132/89
[2018-02-27] MEDS: Venlafaxine EXT RELEASE CAP* 75 MG PO SCH (08:31)
--- NOTE | 2018-02-28 00:46 | DS ---
CC: [facility] * DISCHARGE SUMMARY: DATE OF ADMISSION: 02/21/18 DATE OF DISCHARGE: 02/27/18 PROVIDER: Darby Villagomez NP, in Psychiatry. SUPERVISING PHYSICIAN: Dr. Homar Arrieta.* (DICTATED BY DARBY VILLAGOMEZ NP ) DIAGNOSES: Nelson I: Major depressive disorder, recurrent, severe. Nelson II: Borderline personality disorder traits. CONDITION AT THE TIME OF DISCHARGE: Improved, psychiatrically cleared, stable. Did not participate in groups, but was social with peers. Her family is agreeable to discharge. She has done well here psychiatrically and tolerated the restart of meds and the change of an antidepressant. She will be attending [facility]. MENTAL STATUS EXAM AT TIME OF DISCHARGE: Ria is calm, cooperative, and makes good eye contact. She is alert and oriented x3. Her grooming is good. Her speech pace is normal. Her thought processes are logical. She is not psychotic or delusional. She denies AH, VH, SI, and HI. Insight and judgment are fair to good. She is willing to follow up and urged to see a therapist. DISCHARGE INSTRUCTIONS TO THE PATIENT: A. Medication: 1. Abilify 2 mg tablet at bedtime, dispensed 30. 2. Venlafaxine XR capsule 75 mg, dispensed 30. B. Diet is regular. C. Activities as tolerated. She is a nonsmoker. There are no studies pending at the time of discharge. D. Followup care: She has an appointment at [facility] on 02/28/18 at 10 o'clock. E. Substance abuse followup is not indicated. HOSPITAL COURSE: A. Chief Complaint: "Lately, I have been feeling irritable without the children, her daughter heard me crying, and then Dhara said she does not know how she will cope with my breakdowns." The patient is a 17-year-old partnered black female with a history of 1 admission here at [facility] and 1 prior admission elsewhere, who was brought by ambulance from [facility]. She was somnolent, could not give a lot of history at that time. Poison Control was contacted and the hospital was advised that she should be on telemetry for 24 hours following an overdose of 89 of 5- mg Abilify tablets and 20 of 20-mg Lexapro tablets. Ria has been living with a woman named Dhara since November, where she was at first a friend of her's and she was offered a job at the [employer] and Dhara offered her a place to stay. Since then Dhara and Ria have become romantically involved and Ria has been helping with Dhara' children, but Ria lately has been irritable and not been offering enough affection and indeed she was crying, and Dhara' daughter Rene heard her, so Dhara indicated she does not know how she will cope with Ria's emotional dysregulation. Ria states she is feeling negative like she is a burden, like she is stuck and that she is helpless. Her sleep is poor, she is not interested in anything and in fact dropped out of college. She feels guilt about this action and about how she is making her parents feel. Her energy is low. She cannot concentrate and she has suicidal ideation. B. Psychiatric treatment was rendered. Ria was admitted to the adult behavioral unit and placed on 15-minute checks for safety. Ria did not go to groups, but she did interact with peers well. She stated the groups were not helpful and that she needed to heal in her own way. This included journaling, prayer, and resting. She anticipates going home to pray at her altar which she has created herself. In the past, she has identified with [place] cintron. Ria is on an antipsychotic, Abilify. Her hemoglobin A1c is 5.4, triglycerides are 99, cholesterol 153, LDL cholesterol 95, HDL cholesterol 38.6. We did meet with her mom Dolly and her sister Jean Claude. Dolly was disappointed in Ria for the overdose that she did and was quite clear with Ria that this was unacceptable and that it was inciting fear in her parents. When we discussed her discharge date, Ria became nearly inconsolable, crying, almost screaming and pulling on her hair while holding her head in her hands. Ria was unable to rally from this incident during the meeting and left the room without speaking to anyone. Following that, Dolly, Joe Loera, and I discussed with Ria's dad Sudhakar that Ria would be staying until Tuesday and that Sudhakar's concerns were perhaps more related to Ria's sexual orientation than the true issues at hand. By Tuesday, Ria was delighted to leave. She is excited, wanting to leave as soon as possible, and she did leave around 12:30. She is improved. She is sleeping well. She does feel guilty about what has happened, but her concentration and appetite are both improved and she no longer has suicidal ideation. DARBY VILLAGOMEZ, PAROLE OFFICER [id number]/[facility] #: [id number] [place]
== END 2018-02-27 12:01 | disposition home or self-care (01) | DRG 751 ==
LOC: BSU 07:28
PROVIDERS: ADMIT Psychiatry & Neurology Psychiatry; ATTEND Psychiatry & Neurology Psychiatry
DX: F33.2 Major depressive disorder, recurrent severe without psychotic features (principal); R45.851 Suicidal ideations; F12.90 Cannabis use, unspecified, uncomplicated; Z79.899 Other long term (current) drug therapy; Z81.8 Family history of other mental and behavioral disorders
CPT/HCPCS: 36415; 80061; 83036; 90853; 99222; 99231; 99233; 99238; A9270-GY